=== PATIENT | female | born 1975 | race Caucasian/White ===

== ENCOUNTER 2024-07-16 06:43 | Day surgery (SDC) | payer OTHER ==
[2024-07-16] VITALS (14 sets, daily range): BP systolic 96–128; BP diastolic 62–84
[~2024-07-16] VITALS: Ht 162.6 cm; Wt 83.7 kg
[2024-07-16] MEDS ORDERED: Lactated Ringer's 1,000 ML IV SCH (06:45)
[2024-07-16] MEDS ORDERED: propofoL 40 ML IV ONE (06:51)
--- NOTE | 2024-07-16 07:34 | NUR ---
07/16/24 0734 Precious Castro CONFIRMED AND REVIEWED H&P, MEDCICATIONS, ALLERGIES, MEDICAL HISTORY, RESPIRATORY HISTORY, VITAL SIGNS, 3-LEAD EKG, CONSENTS, AND PHYSICIAN ORDERS. PATIENT CONFIRMS NPO STATUS AND AGREES WITH SCHEDULED PROCEDURE. MONITOR INTACT WITH CONTINUOUS PULSE OXIMETRY, CAPNOGRAPHY, 3-LEAD EKG, INTERMITTENT BP. SUPPLEMENTAL O2 TO BE TITRATED THROUGHOUT PROCEDURE TO MAINTAIN O2 SATURATION ABOVE 90%. PATIENT DETERMINED TO BE ASA APPROPRIATE FOR PROPOFOL SEDATION PRIOR TO START OF PROCEDURE BY DR. JIMENEZ
[2024-07-16] MEDS ORDERED: Midazolam HCl 1MG / ML 2ML Vial ONE (07:41)
--- NOTE | 2024-07-16 07:58 | NUR ---
PT TO DAY SURGERY STEP DOWN FROM COLONOSCOPY; BEDSIDE REPORT RECEIVED. PT IS AWAKE, AND ORIENTED, BUT SLEEPY; ABLE TO MOVE SELF IN BED. VSS. PT HAS NO COMPLAINTS AT THIS TIME.
--- NOTE | 2024-07-16 08:12 | NUR ---
PT TOLERATING PO FLUIDS. Discharge instructions reviewed with patient. Patient verbalizes understanding. Copy given to patient to take home. Patient States Post-Procedure ride home has been arranged.
--- NOTE | 2024-07-16 08:20 | NUR ---
Patient up to Ambulate independently. Gait steady. Discharged via wheelchair to private car for ride home.
== END 2024-07-16 08:21 | disposition home or self-care (01) ==
LOC: ORSCMMR 06:43 → ORD 07:30 → ORSCMMR 07:30
PROVIDERS: Internal Medicine Gastroenterology
PROC: 0DJD8ZZ Inspection of Lower Intestinal Tract, Via Natural or Artificial Opening Endoscopic (ICD-10-PCS; principal; 2024-07-16 07:30)
DX: Z12.11 Encounter for screening for malignant neoplasm of colon (principal); K64.8 Other hemorrhoids; Z83.719 Family history of colon polyps, unspecified; Z87.891 Personal history of nicotine dependence
CPT/HCPCS: J2250; J2704; J7120